=== PATIENT | male | born 1945 | race Caucasian/White ===

== ENCOUNTER 2017-02-27 08:15 | Day surgery (SDC) | payer MEDICARE, OTHER ==
--- NOTE | 2017-02-22 08:14 | HISTORY AND PHYSICAL E ---
History and Physical NAME: CAMACHO KIRK : 1945 AGE: 71Y ADMITTED: 02/27/2017 ROOM: Patient for upper endoscopy. Patient is known to me with history of polyps, now he is for upper endoscopy regarding dysphagia and reflux. The patient presented at this time regarding upper endoscopy. He does have history of polyps and he is here now for reflux, abdominal pain, upper bloating. SOCIAL HISTORY: . Does not smoke, does not drink. PAST SURGICAL HISTORY: 1. Prostate surgery. 2. Colonoscopy. 3. Polyps. REVIEW OF SYSTEMS: HEAD, EYES, EARS, NOSE AND THROAT: Eye glasses. RESPIRATORY: Negative. CARDIAC: Hypertension. ENDOCRINE: Negative. GASTROINTESTINAL: Reflux. Abdominal pain. ONCOLOGY/HEMATOLOGY: Skin cancer, prostate cancer. MUSCULOSKELETAL: Back osteoarthritis. FAMILY HISTORY: Father is alive. Mom is . PHYSICAL EXAMINATION: VITAL SIGNS: Blood pressure 140/80, pulse 80, respirations 20, temp is 98. HEAD, EYES, EARS, NOSE AND THROAT: Normal. NECK: Neck is supple. CARDIOVASCULAR: Normal. LUNGS: Lungs were clear. ABDOMEN: Soft. NEUROLOGIC: Exam negative. CONCLUSIONS: Reflux. PLAN: Upper endoscopy regarding reflux and dysphagia, abdominal pain. MEDICATIONS: 1. Hydrochlorothiazide. 2. Multivitamin. 3. [place]-3. 4. Baby aspirin. Patient referred to us by PILAR. DICTATING PHYSICIAN: SILVER MONREAL M.D. [id number] PHY#: [id number] ID: [id number] JOB#: [id number] ACCT: [id number] cc:[facility] SILVER MONREAL M.D. >
[2017-02-27] MEDS ORDERED: ONDANSETRON HCL INJ/PF 4 MG/2 ML SDV ONE (08:25)
[2017-02-27] MEDS ORDERED: GLYCOPYRROLATE INJ 0.4 MG/2 ML VIAL ONE (08:25)
[2017-02-27] MEDS ORDERED: NALOXONE HCL INJ/PF 0.4 MG/1 ML SDV ONE (08:25)
[2017-02-27] MEDS ORDERED: FENTANYL CITRATE INJ/PF 100 MCG/2 ML AMPUL ONE (08:26)
[2017-02-27] MEDS ORDERED: FLUMAZENIL INJ 0.5 MG/5 ML VIAL IV ONE (08:26)
[2017-02-27] MEDS ORDERED: EPINEPHRINE INJ 1 MG/10 ML DISP.SYRIN ONE (08:27)
[2017-02-27] MEDS: MIDAZOLAM 2 MG/2 ML INJ ONE ×3 (08:50→08:55)
[2017-02-27 10:15] VITALS: BP 130/80
--- NOTE | 2017-02-27 16:34 | DISCHARGE SUMMARY E ---
Discharge Summary NAME: CAMACHO KIRK : 1945 AGE: 71Y ADMITTED: 02/27/2017 DISCHARGED: 02/27/2017 02/27/2017 PROCEDURE: EGD with biopsy. HISTORY: The patient is a 71-year-old male who presented with dysphagia and reflux. Upper scope shows no ulcers and mild esophagitis, gastritis, duodenitis. DISCHARGE PLAN: 1. Hold aspirin and nonsteroidals for 5 days. 2. Awaiting biopsy results. 3. The patient is to see us in the office in the next few days. 4. Soft diet. 5. Continue omeprazole. 6. Follow-up office visit in the next few days. ALLERGIES: HYDROCODONE. DICTATING PHYSICIAN: SILVER MONREAL M.D. 1209M [id number] Y#: [id number] ID: [id number] JOB#: [id number] ACCT: [id number] cc:SILVER MONREAL M.D. >
--- NOTE | 2017-02-27 16:38 | OPERATIVE REPORT E ---
Operative Report NAME: CAMACHO KIRK : 1945 AGE: 71Y DATE OF SURGERY: 02/27/2017 ROOM: PREOPERATIVE DIAGNOSES: 1. Reflux. 2. Dysphagia. POSTOPERATIVE DIAGNOSES: 1. Esophagitis, mild. 2. Gastritis, mild. 3. Duodenitis, mild. PROCEDURES: 1. Esophagoscopy. 2. Gastroscopy. 3. Duodenoscopy. SURGEON: SILVER MONREAL M.D. TISSUE REMOVED OR ALTERED: Gastric biopsy for H. pylori. ANESTHESIA: Versed 5, fentanyl 125. DESCRIPTION: After adequate sedation, baby scope passed under guided vision, no difficulties. Esophagoscopy junction at 41 cm. Mild esophagitis. No stricture. Gastroscopy: Mild gastritis. No ulcers. Biopsy obtained. Duodenoscopy: Mild duodenitis. CONCLUSION: 1. Mild esophagitis. 2. Mild gastritis. 3. Mild duodenitis. No ulcers, no malignancy. PLAN: Hold aspirin, nonsteroidal. Continue PPI. Awaiting biopsy results. Patient to see us in the office in the next few days. DICTATING PHYSICIAN: SILVER MONREAL M.D. [id number] [id number] PHY#: [id number] ID: [id number] JOB#: [id number] ACCT: [id number] cc:[facility] SILVER BARNES M.D. >
== END 2017-02-27 10:10 | disposition home or self-care (01) ==
LOC: END 08:15
PROVIDERS: ATTEND Specialist
PROC: 0DB68ZX Excision of Stomach, Via Natural or Artificial Opening Endoscopic, Diagnostic (ICD-10-PCS; principal; 2017-02-27 09:00)
DX: K21.0 Gastro-esophageal reflux disease with esophagitis (principal); K29.80 Duodenitis without bleeding; K31.9 Disease of stomach and duodenum, unspecified; I10 Essential (primary) hypertension; M47.9 Spondylosis, unspecified; Z85.46 Personal history of malignant neoplasm of prostate; Z85.828 Personal history of other malignant neoplasm of skin; Z79.899 Other long term (current) drug therapy; Z79.82 Long term (current) use of aspirin
CPT/HCPCS: 43239; 88342 ×2; 88305 ×2; J2250; J3010; J2405; J0171; J2310; J3490

== ENCOUNTER 2017-03-15 09:33 | Day surgery (SDC) | payer MEDICARE, OTHER ==
[~2017-03-15 09:33] MED LIST: EPINEPHRINE INJ 1 MG/10 ML DISP.SYRIN ONE; FENTANYL CITRATE INJ/PF 100 MCG/2 ML AMPUL ONE; FLUMAZENIL INJ 0.5 MG/5 ML VIAL IV ONE; GLUCAGON,HUMAN RECOMB 1 MG INJ ONE; GLYCOPYRROLATE INJ 0.4 MG/2 ML VIAL ONE; LIDOCAINE 2% JELLY 30 ML TUBE ONE; MIDAZOLAM 2 MG/2 ML INJ ONE; NALOXONE HCL INJ/PF 0.4 MG/1 ML SDV ONE; ONDANSETRON HCL INJ/PF 4 MG/2 ML SDV ONE
[2017-03-15] MEDS: MIDAZOLAM 2 MG/2 ML INJ ONE ×3 (10:02→10:08)
[2017-03-15 11:29] VITALS: BP 111/73
--- NOTE | 2017-03-15 12:35 | OPERATIVE REPORT E ---
Operative Report NAME: CAMACHO KIRK : 1945 AGE: 71Y DATE OF SURGERY: 03/15/2017 ROOM: PREOPERATIVE DIAGNOSIS: Colon screening. POSTOPERATIVE DIAGNOSES: 1. External hemorrhoids. 2. Sigmoid descending colon diverticulosis. PROCEDURE: Colonoscopy. SURGEON: SILVER MONREAL M.D. ANESTHESIA: Versed 3, fentanyl 100. TISSUE REMOVED OR ALTERED: None. DESCRIPTION OF PROCEDURE: Rectal exam: External hemorrhoids. Sigmoid: Diverticulosis, moderate amount of solid stool. Descending colon: Normal. Transverse colon: Redundant, normal. Ascending colon: Normal. Cecum: Has large amount of full liquid stool. I did not see any polyp. Scope withdrawn through cecum, ascending, transverse, descending, sigmoid, all the way to the rectum. CONCLUSION: 1. Colonoscopy showing no polyps. 2. Diverticulosis. 3. Diminutive polyp in the rectum, too small to sample. 4. Inadequate prep. PLAN: 1. Patient needs followup colonoscopy in 3-5 years with better prep. There was a diminutive 1-2 mm polyp in the rectosigmoid too small to sample. 2. Soft, low-residue diet for today. 3. Consider followup colonoscopy in 3-5 years. DICTATING PHYSICIAN: SILVER MONREAL M.D. [id number] [id number] PHY#: [id number] ID: [id number] JOB#: [id number] ACCT: [id number] cc:SILVER MONREAL M.D. >
--- NOTE | 2017-03-15 12:36 | DISCHARGE SUMMARY E ---
Discharge Summary NAME: CAMACHO KIRK : 1945 AGE: 71Y ADMITTED: 03/15/2017 DISCHARGED: 03/15/2017 PROCEDURE: Colonoscopy. FINAL DIAGNOSES: Sigmoid descending colon diverticulosis. HISTORY: Patient did have colonoscopy 20 years ago. Today's colonoscopy shows diminutive polyp rectosigmoid junction, 2 mm, too small to biopsy, sigmoid diverticulosis, moderate amount of liquid stool in the cecum, and solid fecal material comes from diverticula in the sigmoid descending colon. DISCHARGE PLAN: 1. Soft diet, low-residue for today. 2. Consider followup colonoscopy 3 years. DICTATING PHYSICIAN: SILVER MONREAL M.D. [id number] [id number] PHY#: [id number] ID: [id number] JOB#: [id number] ACCT: [id number] cc:[facility] SILVER CHILDERS M.D. >
== END 2017-03-15 11:35 | disposition home or self-care (01) ==
LOC: END 09:33
PROVIDERS: ATTEND Specialist
PROC: 0DJD8ZZ Inspection of Lower Intestinal Tract, Via Natural or Artificial Opening Endoscopic (ICD-10-PCS; principal; 2017-03-15 10:00)
DX: Z12.11 Encounter for screening for malignant neoplasm of colon (principal); K57.30 Diverticulosis of large intestine without perforation or abscess without bleeding; D12.7 Benign neoplasm of rectosigmoid junction; K64.4 Residual hemorrhoidal skin tags; I10 Essential (primary) hypertension; K21.9 Gastro-esophageal reflux disease without esophagitis; M47.9 Spondylosis, unspecified; Z85.828 Personal history of other malignant neoplasm of skin; Z85.46 Personal history of malignant neoplasm of prostate; Z79.82 Long term (current) use of aspirin; Z79.899 Other long term (current) drug therapy
CPT/HCPCS: 45378; J3490; J2250; J1610; G0121; J0171; J2310; J2405; J3010